=== PATIENT | female | born 1955 | race Two or more races ===

== ENCOUNTER 2019-10-11 08:32 | Inpatient (IN) | payer MEDICAID ==
[2019-09-28 10:00] LABS: APPEARANCE,URINE CLEAR; BILIRUBIN, URINE NEGATIVE (NEGATIVE); GLUCOSE, URINE (UA) NEGATIVE (NEGATIVE); KETONES,URINE NEGATIVE (NEGATIVE); LEUKOCYTE ESTERASE ,URINE 1+ (NEGATIVE); NITRITE,URINE NEGATIVE (NEGATIVE); PH,URINE 6 (4.5-8.0); PROTEIN,URINE NEGATIVE (NEGATIVE); UROBILINOGEN,URINE NORMAL MG/DL (0.0-1.0)
[2019-09-28 10:01] LABS: COLOR,URINE YELLOW
[2019-09-28 10:02] LABS: BASOPHILS % (AUTO) 1.1 % (0.0-2.0); EOSINOPHILS % (AUTO) 2.2 % (0.0-3.0); HEMOGLOBIN 14.3 G/DL (12.0-16.0); LYMPHOCYTES % (AUTO) 22.2 % (20.0-45.0); MEAN CORPUSCULAR VOLUME 89 FL (80-99); MONOCYTES % (AUTO) 8.4 % (1.0-10.0); NEUTROPHILS % (AUTO) 66.2 % (45.0-75.0); PLATELET COUNT 272 K/UL (150-450); RED BLOOD COUNT 4.84 M/UL (4.20-5.40); RED CELL DISTRIBUTION WIDTH 13.8 % (11.6-14.8); WHITE BLOOD COUNT 6.5 K/UL (4.8-10.8)
[2019-09-28 10:12] LABS: ANION GAP 11 mmol/L (5-15); BLOOD UREA NITROGEN 14 mg/dL (7-18); CALCIUM 9.4 MG/DL (8.5-10.1); CARBON DIOXIDE 26 MMOL/L (21-32); CHLORIDE 104 MMOL/L (98-107); POTASSIUM 4.4 MMOL/L (3.5-5.1); SODIUM 141 MMOL/L (136-145)
[2019-09-28 10:19] LABS: INR 0.9 (0.9-1.1)
--- NOTE | 2019-09-28 15:17 | Diagnostic Imaging Report ---
Indication: Cough Technique: XRAY Chest 2v Comparison: None Findings: Heart size and mediastinal contours within normal limits. There is minimal linear atelectasis or scarring in the middle lobe. Otherwise there is no focal airspace consolidation. No pleural effusion, pneumothorax or evidence of pulmonary edema. There is mild scoliosis and degenerative changes of the spine. No acute osseous abnormality. IMPRESSION: Very mild linear atelectasis or scarring in the right lobe. Otherwise lungs are clear.
--- NOTE | 2019-10-06 15:45 | Pre-op HX & Phy Repo 2 SIG ---
DATE OF ADMISSION: 10/11/2019 DATE OF PLANNED SURGERY: Scheduled for surgery October 11, 2019. HISTORY OF PRESENT ILLNESS: The patient is a 63-year-old female in overall stable health with invasive ductal carcinoma of the left breast diagnosed in June 2019 and she has received neoadjuvant chemotherapy in [place]. The patient had a history in 2010 of stage III right breast cancer and underwent mastectomy with chemotherapy and radiation. Now, she has left breast cancer, which is triple negative, stage IIB. She underwent oncology evaluation and MRI revealing the carcinoma in the left breast 22 millimeters at 3 o'clock 7 cm from the nipple. There is no palpable mass in the left breast. The patient is scheduled to undergo a left breast partial mastectomy with stereotactic preoperative needle localization and left axillary lymph node dissection. MEDICATIONS: None. ALLERGIES: None. OPERATIONS: Right mastectomy in 2010. PHYSICAL EXAMINATION: GENERAL: The patient is 179 pounds, approximately 5 feet 8 inches. VITAL SIGNS: Within normal limits. HEENT: Within normal limits. LUNGS: Clear. HEART: Regular rhythm. BREASTS: Reveals right modified radical mastectomy with flap reconstruction with an extensive right chest wall incision. The left breast is moderately large. There is no palpable mass. There is no palpable axillary or supraclavicular lymphadenopathy. ABDOMEN: Soft. PELVIC AND RECTAL: Per primary care. EXTREMITIES: Without edema. NEUROLOGIC: Physiologic. IMPRESSION: Invasive ductal carcinoma, left breast, stage IIB, triple negative, status post neoadjuvant chemotherapy. PLAN: As outlined above. I have had a full discussion with the patient regarding the nature of the surgery, indications, alternatives, options, and risks including bleeding, infection, need for additional procedures based on final pathology, neuritis or neuralgia, need for drain in the axilla, scarring, distortion of the breast or nipple, etc. All questions have been answered. She understands and agrees to proceed. Ashish Wen M.D. DR: CONI JOB#: [id number] CC: [email or web address]
[2019-10-11] VITALS (13 sets, daily range): BP systolic 102–145; BP diastolic 48–98
[~2019-10-11] VITALS: Ht 172.7 cm; Wt 79.7 kg
[2019-10-11] MEDS ORDERED: [UNRECOGNIZED DRUG - OTHER] PO (09:38)
[2019-10-11] MEDS ORDERED: VITAMIN B COMP1 EAC2 ORAL (09:38)
[2019-10-11] MEDS ORDERED: Bupivacaine w/Epi 0.5% 30ml Vial INJ ONE (10:55)
[2019-10-11] MEDS ORDERED: Bacitracin 50000 Units Vial ONE (10:55)
--- NOTE | 2019-10-11 11:04 | Anethesia Preoperative Eval ---
Anesthesia Pre-op PMH/ROS General Date of Evaluation: Oct 11, 2019 Anesthesiologist: Amandeep ASA Score: ASA 3 Mallampati Score Class I : Soft palate, uvula, fauces, pillars visible Class II: Soft palate, uvula, fauces visible Class III: Soft palate, base of uvula visible Class IV: Only hard plate visible Mallampati Classification: Class II Surgeon: Bettye Diagnosis: Left breast cancer Surgical Procedure: Left breast mastectomy Anesthesia History: none Family History: no anesthesia problems Allergies: Uncoded Allergies: CHOCOLATE (Allergy, Intermediate, SKIN REDNESS, 10/11/19) Medications: see eMAR Patient NPO?: Yes NPO Date: Oct 11, 2019 NPO Time: 00:00 Past Medical History Cardiovascular: Denies: HTN, CAD, [place], valve dz, arrhythmia, other Pulmonary: Denies: asthma, COPD, LAN, other Gastrointestinal/Genitourinary: Denies: GERD, CRI, ESRD, other Neurologic/Psychiatric: Denies: dementia, CVA, depression/anxiety, TIA, other Endocrine: Denies: DM, hypothyroidism, steroids, other HEENT: Denies: cataract (L), cataract (R), glaucoma, [place] (L[place] (R), other Hematology/Immune: Reports: other - right breast cancer s/p mastectomy 2010; current left breast CA; Denies: anemia, DVT, bleeding disorder Musculoskeletal/Integumentary: Denies: OA, RA, DJD, DDD, edema, other PSxH Narrative: Right breast mastectomy with lymphadenectomy Anesthesia Pre-op Phys. Exam Physician Exam Last Vital Signs Date Time Temp Pulse Resp B/P (MAP) Pulse Ox O2 Delivery O2 Flow Rate FiO2 10/11/19 09:16 Room Air 10/11/19 09:09 97.8 81 18 138/70 97 Constitutional: NAD Cardiovascular: RRR Respiratory: CTA Airway Exam Mallampati Score: Class II MO: full ROM: full Anesthesia Pre-op A/P Labs see chart Studies Pre-op Studies: EKG - sr Risk Assessment & Plan Assessment: ASA III Plan: GA Status Change Before Surgery: No Pre-Antibiotics Drug: Ancef 1g Given Within 1 Hr of Incision: Yes Olga Duncan MD Oct 11, 2019 11:04
[2019-10-11] MEDS ORDERED: NS Irrig 1000ml IRRIG ONE ×2 (11:08→11:55)
[2019-10-11] MEDS ORDERED: Rocuronium Bromide 50mg/5ml Inj IV ONE (11:12)
[2019-10-11] MEDS ORDERED: Midazolam 2mg/2ml Inj ONE (11:15)
[2019-10-11] MEDS ORDERED: Lidocaine 1% MPF 10mg/ml 5ml ONE (11:15)
[2019-10-11] MEDS ORDERED: fentaNYL 100 mcg/2 mL IV ONE (11:15)
[2019-10-11] MEDS ORDERED: Propofol 200mg/20ml IV ONE (11:15)
[2019-10-11] MEDS ORDERED: LR 1000ml 1,000 ML IVLG SCH (11:19)
--- NOTE | 2019-10-11 11:29 | Pre-Procedure Note/Attestation ---
Pre-Procedure Note/Attestation Complete Prior to Procedure Planned Procedure: left Procedure Narrative: left breast partial mastectomy with pre-op needle localization and left axillary lymph node dissection Indications for Procedure Pre-Operative Diagnosis: invasive ductal carcinoma left breast stage IIB Attestation I attest that I discussed the nature of the procedure; its benefits; risks and complications; and alternatives (and the risks and benefits of such alternatives ), prior to the procedure, with the patient (or the patient's legal accounts receivable representative). I attest that, if there was a reasonable possibility of needing a blood transfusion, the patient (or the patient's legal accounts receivable representative) was given the [facility] standardized written summary, pursuant to the [place] Blood Safety Act ([place] Health and Safety Code # 1645, as amended). I attest that I re-evaluated the patient just prior to the surgery and that there has been no change in the patient's H&P, except as documented below: none Ashish Wen MD Oct 11, 2019 11:29
[2019-10-11] MEDS ORDERED: Hydromorphone 0.5mg/0.5ml inj IVP PRN (11:30)
[2019-10-11] MEDS ORDERED: fentaNYL 100 mcg/2 mL IV PRN (11:30)
[2019-10-11] MEDS ORDERED: DiphenhydrAMINE 50mg/ml Inj IVP PRN (11:30)
[2019-10-11] MEDS ORDERED: LORazepam Inj 2mg/ml 1ml IV PRN (11:30)
[2019-10-11] MEDS ORDERED: Midazolam 2mg/2ml Inj IVP PRN (11:30)
[2019-10-11] MEDS ORDERED: Metoclopramide 10mg/2ml Inj IVP PRN (11:30)
[2019-10-11] MEDS ORDERED: Ketorolac 30mg Inj IV PRN (11:30)
[2019-10-11] MEDS ORDERED: LR 1000ml ONE (12:00)
[2019-10-11] MEDS ORDERED: NS Irrig 1000ml ONE (12:00)
[2019-10-11] MEDS ORDERED: Sterile Water Irrig 1000ml IRRIG ONE (12:00)
[2019-10-11] MEDS ORDERED: Dexamethasone 4mg/ml vial ONE (12:02)
[2019-10-11] MEDS ORDERED: HYDROcodone/Acetamin 5/325 tab ORAL PRN (13:30)
[2019-10-11] MEDS ORDERED: HYDROmorphone 1mg/ml Carpuject SUBQ PRN (13:30)
--- NOTE | 2019-10-11 13:36 | Immediate Post-Op Evaluation ---
Immediate Post-Op Evalulation Immediate Post-Op Evalulation Procedure: Left breast partial mastectomy with axillary lymph node biopsy Date of Evaluation: Oct 11, 2019 Time of Evaluation: 13:35 IV Fluids: 900 Blood Products: 0 Estimated Blood Loss: 5 Urinary Output: 0 Blood Pressure Systolic: 102 Blood Pressure Diastolic: 48 Pulse Rate: 69 Respiratory Rate: 16 O2 Sat by Pulse Oximetry: 100 Temperature (Fahrenheit): 97.6 Pain Score (1-10): 0 Nausea: No Vomiting: No Complications 0 Patient Status: awake, reacts, patent, none Hydration Status: adequate Drug: Ancef 1g Given Within 1 Hr of Incision: Yes Olga Duncan MD Oct 11, 2019 13:36
--- NOTE | 2019-10-11 13:36 | Brief Operative Note ---
Immediate Post Operative Note Operative Note Pre-op Diagnosis: invasive ductal carcinoma left breast stage IIB Procedure: left breast partial mastectomy with pre-op needle localization and left axillary lymph node dissection Post-op Diagnosis: same Post-op Diagnosis: same as pre-op Findings: consistent w/pre-op dx studies Surgeon: remedios Anesthesiologist: gaby Anesthesia: general Specimen: yes - left breast cancer, left axillary lymph nodes Complications: none Condition: stable Fluids: see anesthesia record Estimated Blood Loss: minimal Drains: JOAQUIN Implant(s) used?: No Ashish Wen MD Oct 11, 2019 13:36
--- NOTE | 2019-10-11 13:45 | 48 Hour Post Anesthesia Eval ---
Post Anesthesia Evaluation Procedure: Left breast partial mastectomy with axillary lymph node biopsy Date of Evaluation: Oct 11, 2019 Time of Evaluation: 16:51 Blood Pressure Systolic: 128 0: 72 Pulse Rate: 79 Respiratory Rate: 18 Temperature (Fahrenheit): 98.2 O2 Sat by Pulse Oximetry: 98 Airway: patent Nausea: No Vomiting: No Pain Intensity: 2 Hydration Status: adequate Cardiopulmonary Status: Stable Mental Status/LOC: patient returned to baseline Follow-up Care/Observations: 0 Post-Anesthesia Complications: 0 Follow-up care needed: N/A Jimbo Brown MD Oct 11, 2019 13:45
[2019-10-11] MEDS ORDERED: D5 1/2NS w/KCl 20mEq 1,000 ML IV SCH (16:00)
[2019-10-11] MEDS: ceFAZolin sod 1 GM in D5W 55 ML IV SCH (20:36)
--- NOTE | 2019-10-11 21:30 | Operative Note - Dictated ---
DATE OF OPERATION: 10/11/2019 SURGEON: Ashish Wen M.D. BUSINESS BANKING MANAGER: None. ANESTHESIOLOGIST: Olga Bobo M.D. TYPE OF ANESTHESIA: General. PREOPERATIVE DIAGNOSIS: Invasive ductal carcinoma, left breast, stage IIB. POSTOPERATIVE DIAGNOSIS: Invasive ductal carcinoma, left breast, stage IIB. OPERATION PERFORMED: Left breast partial mastectomy with preoperative needle localization and left axillary lymph node dissection. INDICATIONS: The patient has undergone neoadjuvant chemotherapy for triple negative invasive ductal carcinoma, left breast, stage IIB. In 2010, she underwent right modified radical mastectomy with chemotherapy and radiation for stage III carcinoma of the right breast. DESCRIPTION OF PROCEDURE: The patient was taken to the operating room and under general anesthesia was prepped and draped in usual fashion. A curvilinear outer left breast incision was made achieving hemostasis with cautery and dissecting flaps circumferentially. The 2 wire localization wires were brought into the field. The appropriate sector of tissue was widely excised as a quadrantectomy. Hemostasis was carefully achieved with cautery. The specimen was oriented with sutures placed anterior, superior, and medial. Specimen radiograph confirmed the presence of all the calcifications in the specimen, which was then given for pathology. The field was irrigated with antibiotic solution and hemostasis carefully achieved with cautery. The incision was closed with interrupted 3-0 Vicryl deep dermal subcutaneous sutures followed by continuous 4-0 Monocryl subcuticular suture. A left axillary incision was made achieving hemostasis with cautery and incising the clavipectoral fascia. The lymphadenectomy was performed using the Thunderbeat electrosurgical device and the specimen given to pathology confirming presence of multiple lymph nodes. The field was irrigated and hemostasis carefully achieved with cautery. Through a separate stab incision inferiorly, a 10 mm large flat Jm-Jones drain was placed into the axilla and sutured to the skin with a 2-0 nylon skin suture. The clavipectoral fascia was closed with interrupted 3-0 Vicryl, subcutaneous tissues closed with interrupted 3-0 Vicryl, and skin closed with continuous 4-0 Monocryl subcuticular suture. Tincture of benzoin and half-inch Steri-Strips were applied to both incisions followed by dry sterile dressings. Final sponge and needle counts were correct. A postoperative surgical brassiere was applied. The patient tolerated the procedure well and left the operating room in good condition. Ashish Wen M.D. DR: MARY ANN JOB#: [id number] CC: EDWIGE
[2019-10-12] VITALS: BP 143/74
[2019-10-12 04:00] VITALS: BP 146/97
[2019-10-12] MEDS: ceFAZolin sod 1 GM in D5W 55 ML IV SCH (04:10)
[2019-10-12 08:00] VITALS: BP 146/77
[2019-10-12 12:00] VITALS: BP 155/84
--- NOTE | 2019-10-12 12:25 | General Progress Note ---
Progress Note Progress Note Doing well - had no need for analgesia overnight left breast and axilla healing nicely with intact steristrips JOAQUIN 20cc serous Imp: stable Plan: discharge with JOAQUIN drain and surgical brassiere Rx - 0 f/u 2/4 Instructions/limitations/supplies discussed/provided Ashish Wen MD Oct 12, 2019 12:25
[2019-10-12] MEDS ORDERED: Tubing IV Secondary IV ONE (13:29)
--- NOTE | 2019-10-17 07:08 | Discharge Summary ---
Discharge Summary Hospital Course Date of Admission Oct 11, 2019 at 14:16 Date of Discharge Oct 12, 2019 at 13:30 Admitting Diagnosis Invasive ductal carcinoma, left breast, stage IIB. Reason for Hospitalization: Elective surgery ABBY Duffy is a 63 year old female who was admitted on Oct 11, 2019 at 14: 16 for Breast Cancer Left Breast 63-year-old female in overall stable health with invasive ductal carcinoma of the left breast diagnosed in June 2019 and she has received neoadjuvant chemotherapy in [place]. The patient had a history in 2010 of stage III right breast cancer and underwent mastectomy with chemotherapy and radiation. Now, she has left breast cancer, which is triple negative, stage IIB. She underwent oncology evaluation and MRI revealing the carcinoma in the left breast 22 millimeters at 3 o'clock 7 cm from the nipple. There is no palpable mass in the left breast. The patient is scheduled to undergo a left breast partial mastectomy with stereotactic preoperative needle localization and left axillary lymph node dissection. Procedures s/p 10/11/[address] Wen Left breast partial mastectomy with preoperative needle localization and left axillary lymph node dissection. Hospital Course status post surgery course of recovery uneventful initially IV fluids s/p perioperative antibiotics left breast and axilla were healing nicely with intact steri-strips JOAQUIN drain output closely monitored pain management was addressed ' pain was controlled remained hemodynamically stable ambulated tolerated diet , IV fluids discontinued antiemetics were on board as needed voided freely patient was instructed on JOAQUIN drain care at home patient was stable for discharge patient was discharged with JOAQUIN drain and surgical brassiere discharge instructions/limitations/supplies discussed/provided discharge instructions provided follow up with surgeon on 10/18 FINAL [id number] Invasive ductal carcinoma, left breast, stage IIB s/p Left breast partial mastectomy with preoperative needle localization and left axillary lymph node dissection Discharge Medications Continued Medications: [Mushroom Vitamin ] () 1 TAB PO DAILY (This prescription has been renewed) Vitamin B Complex (Vitamin B Complex) 1 Each Capsule 1 CAP ORAL DAILY for VITAMIN , CAP 0 Refills (This prescription has been renewed ) Discharge Condition Upon Discharge: stable Discharge Disposition Patient was discharged home Discharge Instructions Discharge Instructions Special Instructions I have been assigned to complete a D/C Summary on this account. I was not involved in the patient management Tess Calix NP Oct 17, 2019 07:08
== END 2019-10-12 13:30 | disposition home or self-care (01) | DRG 581 ==
LOC: SUR 08:32 → 3E 14:16
DX: C50.912 Malignant neoplasm of unspecified site of left female breast (principal); Z85.3 Personal history of malignant neoplasm of breast; Z90.11 Acquired absence of right breast and nipple; Z92.3 Personal history of irradiation; Z17.1 Estrogen receptor negative status [ER-]
CPT/HCPCS: 36415; 71046; 80048; 81001; 85025; 85610; 85730; 87081; 93005; 94003; 94150; J2250; J2405